=== PATIENT | female | born 1980 | race Caucasian/White ===

== ENCOUNTER 2016-10-12 15:57 | Emergency (ER) | payer OTHER ==
[~2016-10-12] VITALS: Ht 170.2 cm; Wt 106.4 kg
[2016-10-12] MEDS ORDERED: TYLENOL WITH CO1 TA1 PO (16:13)
[2016-10-12] MEDS ORDERED: ADVIL 200MG TA200 MG PO (16:13)
[2016-10-12 18:38] VITALS: BP 114/72
== END 2016-10-12 18:22 | disposition home or self-care (01) ==
LOC: ED 15:57
DX: R07.9 Chest pain, unspecified (principal); K21.9 Gastro-esophageal reflux disease without esophagitis; R11.2 Nausea with vomiting, unspecified; R10.816 Epigastric abdominal tenderness; M54.89 Other dorsalgia

== ENCOUNTER → 2016-11-12 | Outpatient (CLI) | payer OTHER ==
[~2016-11-12] MED LIST: ADVIL 200MG TA200 MG PO; TYLENOL WITH CO1 TA1 PO
== END ==
LOC: RAD 15:55
DX: E04.1 Nontoxic single thyroid nodule (principal)

== ENCOUNTER → 2017-08-03 | Outpatient (CLI) | payer OTHER | LOC: RAD 13:19 | DX: M51.16 Intervertebral disc disorders with radiculopathy, lumbar region (principal); M48.062 Spinal stenosis, lumbar region with neurogenic claudication ==

== ENCOUNTER 2017-10-12 21:39 | Emergency (ER) | payer OTHER ==
[~2017-10-12] VITALS: Ht 170.2 cm; Wt 111.4 kg
[2017-10-12] MEDS ORDERED: CYCLOBENZAPRIN7.5 MG PO (21:57)
[2017-10-12] MEDS ORDERED: AMOXIL500 M1 PO (22:41)
[2017-10-12 22:51] VITALS: BP 130/84
== END 2017-10-12 22:51 | disposition home or self-care (01) ==
LOC: ED 21:39
DX: K08.89 Other specified disorders of teeth and supporting structures (principal); Z79.899 Other long term (current) drug therapy
CPT/HCPCS: J1885

== ENCOUNTER → 2017-10-13 | Outpatient (CLI) | payer OTHER ==
[2017-10-12 22:51] VITALS: BP 130/84
[~2017-10-13] MED LIST changes: +AMOXIL500 M1 PO; +CYCLOBENZAPRIN7.5 MG PO
[2017-10-13 16:03] LABS: HEMATOCRIT 42.2 % (37.0-47.0); HEMOGLOBIN 14.3 g/dL (12.5-16.0); MEAN CELL VOLUME 91 fl (78-100); MEAN CORPUSCULAR HEMOGLOBIN 31 pg (27-31); MEAN CORPUSCULAR HGB CONC 34 g/dL (33-37); MEAN PLATELET VOLUME 10.1 fl (7.4-10.4); PLATELET COUNT 238 K/mm3 (130-400); RED BLOOD COUNT 4.63 M/mm3 (4.10-5.30); RED CELL DISTRIBUTION WIDTH 13.6 % (11.5-14.5); WHITE BLOOD COUNT 5.6 K/mm3 (4.8-10.8)
[2017-10-13 19:57] LABS: LYMPHOCYTE 11 % (20-51); MONOCYTE 3 % (3-10); NEUTROPHILS 86 % (42-75)
== END ==
LOC: LAB 15:33
PROVIDERS: Family Medicine
DX: Z01.419 Encounter for gynecological examination (general) (routine) without abnormal findings (principal); R53.83 Other fatigue

== ENCOUNTER → 2017-10-19 | Outpatient (CLI) | payer OTHER ==
[2017-10-12 22:51] VITALS: BP 130/84
[2017-10-20] LABS: HEPATITIS C ANTIBODY Negative (())
== END ==
LOC: RAD 10-16 08:30 → LAB 09:07 → RAD 09:45
PROVIDERS: Family Medicine
DX: R74.0 Nonspecific elevation of levels of transaminase and lactic acid dehydrogenase [LDH] (principal); Z90.49 Acquired absence of other specified parts of digestive tract

== ENCOUNTER → 2018-04-29 | Outpatient (CLI) | payer BC | LOC: RAD 11:14 | DX: E04.2 Nontoxic multinodular goiter (principal) ==

== ENCOUNTER → 2018-10-04 | Outpatient (CLI) | payer BC ==
[2018-10-04 08:58] LABS: EOS # 0.1 (0.04-0.40); EOS % 1.6 % (1.0-5.0); HEMATOCRIT 41.1 % (37.0-47.0); HEMOGLOBIN 13.9 g/dL (12.5-16.0); LYMPH# 2.1 (1.50-4.00); MEAN CELL VOLUME 91 fl (78-100); MEAN CORPUSCULAR HEMOGLOBIN 31 pg (27-31); MEAN CORPUSCULAR HGB CONC 34 g/dL (33-37); MEAN PLATELET VOLUME 9.6 fl (7.4-10.4); MONO # 0.5 (0.20-0.80); NEU # 2.8 (1.40-6.50); PLATELET COUNT 237 K/mm3 (130-400); RED CELL DISTRIBUTION WIDTH 13.2 % (11.5-14.5); WHITE BLOOD COUNT 5.5 K/mm3 (4.8-10.8)
[2018-10-04 09:08] LABS: POTASSIUM 3.7 mmol/L (3.5-5.1)
[2018-10-04 09:09] LABS: ALBUMIN 3.7 g/dL (3.5-5.0)
[2018-10-04 09:10] LABS: CALCIUM 9.2 mg/dL (8.3-10.5)
[2018-10-04 09:11] LABS: TOTAL PROTEIN 6.9 g/dL (6.4-8.3)
[2018-10-04 09:13] LABS: TOTAL BILIRUBIN 0.4 mg/dL (0.2-1.2)
[2018-10-04 09:23] LABS: URINE APPEARANCE CLEAR; URINE BILIRUBIN NEGATIVE (NEGATIVE); URINE BLOOD NEGATIVE (NEGATIVE); URINE COLOR YELLOW; URINE GLUCOSE NEGATIVE (NEGATIVE); URINE KETONE NEGATIVE (NEGATIVE); URINE LEUKOCYTE ESTERASE NEGATIVE (NEGATIVE); URINE MUCUS PRESENT (NOT PRESENT); URINE NITRATE NEGATIVE (NEGATIVE); URINE PROTEIN(semi-quant) NEGATIVE (NEGATIVE); URINE UROBILINOGEN NORMAL (NORMAL)
== END ==
LOC: LAB 08:46
PROVIDERS: Family Medicine
DX: Z01.419 Encounter for gynecological examination (general) (routine) without abnormal findings (principal); E78.5 Hyperlipidemia, unspecified; E04.2 Nontoxic multinodular goiter; N39.41 Urge incontinence; Z80.8 Family history of malignant neoplasm of other organs or systems

== ENCOUNTER → 2018-10-28 | Outpatient (CLI) | payer BC | LOC: RAD 13:00 | DX: E04.2 Nontoxic multinodular goiter (principal) ==

== ENCOUNTER → 2019-05-13 | Outpatient (CLI) | payer OTHER | LOC: RAD 11:08 | DX: M25.552 Pain in left hip (principal); Z97.5 Presence of (intrauterine) contraceptive device ==

== ENCOUNTER → 2019-05-18 | Outpatient (CLI) | payer OTHER | LOC: RAD 11:02 | DX: M25.851 Other specified joint disorders, right hip (principal); M25.552 Pain in left hip ==

== ENCOUNTER → 2019-10-03 | Outpatient (CLI) | payer OTHER | LOC: RAD 09:28 | DX: M75.32 Calcific tendinitis of left shoulder (principal) ==

== ENCOUNTER → 2019-10-13 | Outpatient (CLI) | payer OTHER | LOC: RAD 12:16 | DX: M25.812 Other specified joint disorders, left shoulder (principal); M65.20 Calcific tendinitis, unspecified site ==

== ENCOUNTER → 2019-11-01 | Outpatient (CLI) | payer OTHER | LOC: RAD 08:30 | DX: E04.1 Nontoxic single thyroid nodule (principal) ==

== ENCOUNTER → 2019-11-14 | Outpatient (CLI) | payer OTHER | LOC: RAD 07:00 | DX: E04.2 Nontoxic multinodular goiter (principal) ==

== ENCOUNTER → 2019-11-16 | Outpatient (CLI) | payer OTHER | LOC: LAB 14:00 | DX: R53.83 Other fatigue (principal) ==

== ENCOUNTER 2020-01-14 10:29 | Emergency (ER) | payer OTHER ==
[~2020-01-14] VITALS: Wt 111.5 kg
[2020-01-14] MEDS ORDERED: LEVOTHYROXIN0.088 MG PO (10:33)
[2020-01-14 10:56] LABS: EOS # 0.1 (0.04-0.40); EOS % 1.2 % (1.0-5.0); HEMOGLOBIN 13.8 g/dL (12.5-16.0); LYMPH# 1.1 (1.50-4.00); MEAN CELL VOLUME 93 fl (78-100); MEAN CORPUSCULAR HEMOGLOBIN 31 pg (27-31); MEAN CORPUSCULAR HGB CONC 34 g/dL (33-37); MEAN PLATELET VOLUME 9.4 fl (7.4-10.4); MONO # 0.8 (0.20-0.80); NEU # 5.5 (1.40-6.50); PLATELET COUNT 245 K/mm3 (130-400); RED BLOOD COUNT 4.43 M/mm3 (4.10-5.30); RED CELL DISTRIBUTION WIDTH 12.8 % (11.5-14.5); WHITE BLOOD COUNT 7.6 K/mm3 (4.8-10.8)
[2020-01-14 11:05] LABS: ALBUMIN 3.7 g/dL (3.5-5.0); POTASSIUM 4.1 mmol/L (3.5-5.1)
[2020-01-14 11:06] LABS: CALCIUM 8.8 mg/dL (8.3-10.5)
[2020-01-14 11:07] LABS: TOTAL PROTEIN 6.8 g/dL (6.4-8.3)
[2020-01-14 11:09] LABS: TOTAL BILIRUBIN 0.5 mg/dL (0.2-1.2)
[2020-01-14 12:55] VITALS: BP 130/95
== END 2020-01-14 12:50 | disposition home or self-care (01) ==
LOC: ED 10:29
PROVIDERS: Family Medicine
DX: R53.81 Other malaise (principal); B34.9 Viral infection, unspecified; Z85.850 Personal history of malignant neoplasm of thyroid; Z90.89 Acquired absence of other organs; Z79.890 Hormone replacement therapy

== ENCOUNTER → 2020-01-25 | Outpatient (CLI) | payer OTHER ==
[2020-01-14 12:55] VITALS: BP 130/95
[~2020-01-25] MED LIST changes: +LEVOTHYROXIN0.088 MG PO
== END ==
LOC: LAB 07:01
DX: D49.7 Neoplasm of unspecified behavior of endocrine glands and other parts of nervous system (principal)

== ENCOUNTER → 2020-02-03 | Outpatient (CLI) | payer OTHER ==
[2020-01-14 12:55] VITALS: BP 130/95
== END ==
LOC: LAB 06:54
DX: D49.7 Neoplasm of unspecified behavior of endocrine glands and other parts of nervous system (principal)

== ENCOUNTER → 2020-03-14 | Outpatient (CLI) | payer OTHER ==
[2020-03-14 19:37] LABS: T3 TOTAL 69 ng/dL (58-159)
== END ==
LOC: LAB 07:01
DX: C73 Malignant neoplasm of thyroid gland (principal)

== ENCOUNTER → 2020-03-19 | Outpatient (CLI) | payer OTHER | LOC: LAB 10:00 → RAD 10:00 | DX: M47.812 Spondylosis without myelopathy or radiculopathy, cervical region (principal) ==

== ENCOUNTER → 2020-04-23 | Outpatient (CLI) | payer OTHER | LOC: LAB 10:15 | DX: E89.0 Postprocedural hypothyroidism (principal) ==

== ENCOUNTER → 2020-05-11 | Outpatient (CLI) | payer OTHER | LOC: LAB 10:43 | DX: U07.1 COVID-19 (principal) ==

== ENCOUNTER → 2020-06-08 | Outpatient (CLI) | payer OTHER | LOC: LAB 08:03 | DX: E89.0 Postprocedural hypothyroidism (principal) ==

== ENCOUNTER → 2020-08-07 | Outpatient (CLI) | payer OTHER | LOC: LAB 08-06 07:20 | DX: E89.0 Postprocedural hypothyroidism (principal) ==

== ENCOUNTER → 2020-09-28 | Outpatient (CLI) | payer OTHER | LOC: RAD 10:59 | DX: C73 Malignant neoplasm of thyroid gland (principal); Z90.89 Acquired absence of other organs ==

== ENCOUNTER → 2020-10-15 | Outpatient (CLI) | payer OTHER | LOC: LAB 07:43 | DX: E89.0 Postprocedural hypothyroidism (principal) ==

== ENCOUNTER → 2021-04-09 | Outpatient (CLI) | payer OTHER | LOC: LAB 11:07 | DX: E89.0 Postprocedural hypothyroidism (principal) ==

== ENCOUNTER → 2021-07-09 | Outpatient (CLI) | payer OTHER | LOC: LAB 08:14 | DX: E89.0 Postprocedural hypothyroidism (principal) ==

== ENCOUNTER → 2021-09-12 | Outpatient (CLI) | payer OTHER | LOC: LAB 08:23 | DX: E03.9 Hypothyroidism, unspecified (principal) ==

== ENCOUNTER → 2021-09-23 | Outpatient (CLI) | payer OTHER ==
[2021-09-23 09:18] LABS: BASO # 0.02 K/mm3 (0.02-0.10); EOS # 0.06 K/mm3 (0.04-0.40); EOS % 1.2 % (1.0-5.0); HEMATOCRIT 38.5 % (37.0-47.0); HEMOGLOBIN 13.2 g/dL (12.5-16.0); LYMPH# 1.84 K/mm3 (1.50-4.00); MEAN CELL VOLUME 91 fl (78-100); MEAN CORPUSCULAR HEMOGLOBIN 31 pg (27-31); MEAN CORPUSCULAR HGB CONC 34 g/dL (33-37); MEAN PLATELET VOLUME 9.4 fl (7.4-10.4); MONO # 0.37 K/mm3 (0.20-0.80); NEU # 2.53 K/mm3 (1.40-6.50); PLATELET COUNT 228 K/mm3 (130-400); RED BLOOD COUNT 4.22 M/mm3 (4.10-5.30); WHITE BLOOD COUNT 4.8 K/mm3 (4.8-10.8)
[2021-09-23 09:32] LABS: ALBUMIN 3.9 g/dL (3.5-5.0); POTASSIUM 3.8 mmol/L (3.5-5.1)
[2021-09-23 09:33] LABS: CALCIUM 9.1 mg/dL (8.3-10.5)
[2021-09-23 09:35] LABS: TOTAL PROTEIN 6.9 g/dL (6.4-8.3)
[2021-09-23 09:36] LABS: TOTAL BILIRUBIN 0.7 mg/dL (0.2-1.2)
== END ==
LOC: LAB 08:43
PROVIDERS: Family Medicine
DX: Z00.00 Encounter for general adult medical examination without abnormal findings (principal); D22.9 Melanocytic nevi, unspecified; G44.89 Other headache syndrome; F32.A Depression, unspecified; R73.9 Hyperglycemia, unspecified; N92.1 Excessive and frequent menstruation with irregular cycle; E04.2 Nontoxic multinodular goiter; E66.9 Obesity, unspecified; E78.5 Hyperlipidemia, unspecified; E11.9 Type 2 diabetes mellitus without complications

== ENCOUNTER → 2022-02-03 | Outpatient (CLI) | payer OTHER | LOC: LAB 14:32 | DX: E04.2 Nontoxic multinodular goiter (principal); F32.A Depression, unspecified; N92.1 Excessive and frequent menstruation with irregular cycle; G44.89 Other headache syndrome; E66.9 Obesity, unspecified ==

== ENCOUNTER → 2022-12-03 | Outpatient (CLI) | payer OTHER ==
[~2022-12-03] MED LIST changes: +MOUNJARO7.5 MG/0.5 SQ; +PRISTIQ ER25 MG PO; +WELLBUTRIN 75MG75 MG PO
== END ==
LOC: RAD 15:50
DX: M51.34 Other intervertebral disc degeneration, thoracic region (principal); M51.36 Other intervertebral disc degeneration, lumbar region

== ENCOUNTER → 2023-01-27 | Outpatient (CLI) | payer OTHER | LOC: LAB 08:42 | DX: E89.0 Postprocedural hypothyroidism (principal) ==

== ENCOUNTER → 2023-03-11 | Outpatient (CLI) | payer OTHER ==
[2023-03-11 12:46] LABS: ALBUMIN 3.6 g/dL (3.5-5.0)
[2023-03-11 12:47] LABS: CALCIUM 8.8 mg/dL (8.3-10.5)
[2023-03-11 12:57] LABS: D-DIMER 0.76 mg/L FEU (0.15-0.50)
[2023-03-11 13:08] LABS: TOTAL BILIRUBIN 0.4 mg/dL (0.2-1.2)
== END ==
LOC: LAB 12:22 → VAS 12:22
PROVIDERS: Nurse Practitioner Family
DX: R22.40 Localized swelling, mass and lump, unspecified lower limb (principal)

== ENCOUNTER → 2023-03-20 | Outpatient (CLI) | payer OTHER | LOC: LAB 11:03 | DX: E89.0 Postprocedural hypothyroidism (principal) ==

== ENCOUNTER → 2023-06-02 | Outpatient (CLI) | payer OTHER | LOC: RAD 09:41 | DX: S09.93XA Unspecified injury of face, initial encounter (principal); W19.XXXA Unspecified fall, initial encounter ==

== ENCOUNTER → 2023-09-10 | Outpatient (CLI) | payer OTHER | LOC: LAB 08:39 | DX: E89.0 Postprocedural hypothyroidism (principal) ==

== ENCOUNTER → 2023-12-08 | Outpatient (CLI) | payer OTHER ==
[2023-12-08 09:44] LABS: BASO # 0.01 K/mm3 (0.02-0.10); EOS # 0.07 K/mm3 (0.04-0.40); EOS % 1.7 % (1.0-5.0); HEMOGLOBIN 11.9 g/dL (12.5-16.0); LYMPH# 1.63 K/mm3 (1.50-4.00); MEAN CELL VOLUME 101 fl (78-100); MEAN CORPUSCULAR HEMOGLOBIN 34 pg (27-31); MEAN CORPUSCULAR HGB CONC 34 g/dL (33-37); MEAN PLATELET VOLUME 9.2 fl (7.4-10.4); MONO # 0.36 K/mm3 (0.20-0.80); NEU # 2.04 K/mm3 (1.40-6.50); PLATELET COUNT 185 K/mm3 (130-400); RED BLOOD COUNT 3.47 M/mm3 (4.10-5.30); RED CELL DISTRIBUTION WIDTH 12.7 % (11.5-14.5); WHITE BLOOD COUNT 4.1 K/mm3 (4.8-10.8)
[2023-12-08 09:52] LABS: ALBUMIN 3.8 g/dL (3.5-5.0)
[2023-12-08 09:53] LABS: CALCIUM 8.9 mg/dL (8.3-10.5)
[2023-12-08 09:55] LABS: TOTAL PROTEIN 6.5 g/dL (6.4-8.3)
[2023-12-08 09:56] LABS: TOTAL BILIRUBIN 0.3 mg/dL (0.2-1.2)
[2023-12-08 10:07] LABS: D-DIMER 0.3 mg/L FEU (0.15-0.50)
== END ==
LOC: LAB 09:04
PROVIDERS: Family Medicine
DX: I10 Essential (primary) hypertension (principal); E04.2 Nontoxic multinodular goiter; I83.892 Varicose veins of left lower extremity with other complications

== ENCOUNTER → 2023-12-24 | Outpatient (CLI) | payer OTHER | LOC: MAMMO 09:51 | DX: Z12.31 Encounter for screening mammogram for malignant neoplasm of breast (principal) ==

== ENCOUNTER → 2024-05-23 | Outpatient (CLI) | payer OTHER | LOC: LAB 07:45 | DX: C73 Malignant neoplasm of thyroid gland (principal); E89.0 Postprocedural hypothyroidism ==